=== PATIENT | female | born 1985 | race Hispanic/Latino ===

== ENCOUNTER 2020-03-01 21:17 | Emergency (ER) | payer SELFPAY ==
[~2020-03-01] VITALS: Ht 170.2 cm; Wt 80.7 kg
--- NOTE | 2020-03-01 21:28 | Emergency Department Note ---
History of Present Illnes History of Present Illness Chief Complaint: back pain History of Present Illness This is a 34 year old female, with history of hypertension, who presents with a one-week history of right sided low back pain, in the area of the SI notch, that radiates down into the right buttock and down the right leg. Patient's been taking Tylenol, more frequently than prescribed, she is unable take Motrin due to the fact that it causes her to have hives. Patient denies any heavy lifting or back injury. Patient states that she's had 5-6 similar episodes, since the beginning of this year. Patient was laid off due to Covid, and has lost her health insurance, so she has had to seek care at [facility] and the Emergency [facility]. HEALTH NURSE [place] - no narcotic pain medications have been filled last 2 years. Arrival Mode: Car Claim Taker Required: No Onset (how long ago): week(s) (1) Location: right low back/SI joint/Right buttock Quality: sharp, stabbing Radiation: Reports extremity (RLE) Severity: severe Onset quality: gradual Duration (how long): week(s) (1) Timing of current episode: constant Progression: unchanged Chronicity: recurrent Context: Denies recent illness, Denies recent surgery, Denies recent travel, Denies trauma/injury Relieving factors: none Exacerbating factors: movement (Raising RLE, worsens the pain) Associated symptoms: Reports denies other symptoms Treatments prior to arrival: other (Tylenol) Past Medical/Family History Physician Review I have reviewed the patient's past medical and family history. Any updates have been documented here. Past Medical History Recent Fever: No Clinical Suspicion of Infectio: No New/Unexplained Change in Ment: No Past Medical History: Hypertension Past Surgical History: None Social History Smoking Cessation: Never Smoker Alcohol Use: Occasional Any Illegal Drug Use: No TB Exposure/Symptoms: No Physically hurt or threatened: No Family History Family history of heart diseas: No Other Last Tetanus: unsure Any Pre-Existing Lines (PICC,: No Is patient up to date on immun: No Review of Systems Review of Systems Constitutional: Denies chills, Denies fever EENTM: Reports no symptoms Cardiovascular: Denies chest pain, Denies palpitations Respiratory: Denies cough, Denies dyspnea Gastrointestinal: Denies abdominal pain, Denies constipation, Denies diarrhea, Denies vomiting Genitourinary: Reports no symptoms Musculoskeletal: Reports back pain, Reports muscle pain (right low back); Denies joint pain, Denies neck pain Integumentary: Reports no symptoms Neurological: Denies numbness, Denies paresthesia, Denies weakness Psychological: Reports no symptoms Hematological/Lymphatic: Reports no symptoms Review of other systems: All other systems negative Physical Exam Related Data Allergies: Coded Allergies: Cephalosporins (Verified Allergy, Unknown, 03/01/20) ibuprofen (Verified Allergy, Unknown, 03/01/20) Vital signs reviewed: Yes Physical Exam CONSTITUTIONAL Constitutional: Present well-developed, Present well-nourished; Absent distressed, Absent ill appearing HENT HENT: Present normocephalic, Present atraumatic, Present oropharynx clear/moist, Present nose normal HENT L/R: Present left ext ear normal, Present right ext ear normal EYES Eyes: Reports PERRL, Reports conjunctivae normal NECK Neck: Present ROM normal PULMONARY Pulmonary: Present effort normal, Present breath sounds normal CARDIOVASCULAR Cardiovascular: Present regular rhythm, Present heart sounds normal, Present capillary refill normal, Present normal rate; Absent murmur GASTROINTESTINAL Abdominal: Present soft, Present nontender, Present bowel sounds normal GENITOURINARY Genitourinary: Present exam deferred SKIN Skin: Present warm, Present dry; Absent rash MUSCULOSKELETAL Musculoskeletal: Present tenderness (ttp of right SI joint and right sciatic notch; no lumbar vertebreal point tenderness;); Absent ROM normal (+ SLR on right at 30 degrees;) NEUROLOGICAL Neurological: Present alert, Present oriented x 3, Present no gross motor or sensory deficits; Absent cranial nerve deficit PSYCHOLOGICAL Psychological: Present mood/affect normal, Present judgement normal Results Laboratory Laboratory UPT - negative; UA - negative; Lab results reviewed: Yes Assessment & Plan Medical Decision Making MDM - Take medications as directed. Alternate ice and heat to the area of back pain. - Follow-up with a primary care provider, or orthopedic software support specialist for further evaluation if your symptoms, when possible. You likely need an MRI of th e lumbar spine and "Sacroiliac Joints," as well as some blood work to evaluate for possible arthritic conditions that could cause similar pain to what you are experiencing. - Consider "Airrosti Therapy," to help with chronic back pain. This is a form of "myofascial release," performed by a Chiropracter. - DO NOT take more than 4000 mg of Tylenol in a 24 hour period, and do NOT take with alcohol. Assessment & Plan Final Impression: (1) Sciatica (2) Sacroiliac inflammation Depart Disposition: HOME, SELF-assisted Meds Active Scripts Prednisone (PREDNISONE) 20 Mg Tab, 50 MG PO DAILY for inflammation of back for 7 Days, #7 TAB 0 Refills Prov:MILTON CERVANTES MD 03/01/20 Methocarbamol (ROBAXIN-750) 750 Mg Tablet, 1-2 TAB PO Q8H PRN for muscle spasm, #20 TAB 0 Refills Do [address] take and drive or operate machinery. Prov:MILTON CERVANTES MD 03/01/20 Tramadol Hcl (ULTRAM) 50 Mg Tablet, 1-2 TAB PO Q6H PRN for pain, #30 TAB 0 Refills DO NOT take and drive or operate machinery. Prov:MILTON CERVANTES MD 03/01/20 MILTON CERVANTES MD Mar 01, 2020 21:28
--- OUTSIDE RECORDS SUMMARY | 2020-03-01 22:27 | XMS REPORT | Continuity of Care Document ---
Author Author [employer] RAF[employer] Address Unknown Phone Unavailable Care Team Providers Care Customer Service Sales Consultant Name Role Phone [employer] Information Exchange Unavailable Un available Problems Problem Status Onset Date Classification Date Reported Comments Source Encounter to establish care Ac tive Diagnosis 1 06/07/2017 Enayet Rahim Essential hypertension Active Problem 04/07/2018 Enayet Rahim Blurred vision Active Diagnosis 04/07/2018 Enayet Rahim Chronic nonintractable headache, unspeci fied headache type Active Diag nosis 04/07/2018 Enayet Rahim Medications Medication Details Route Status Patient Instructions Ordering Provider Order Date Source Amlodipine Besylate 1 tablet Orally Active 5 MG Orally Once a day Mark Anthony 04/03/2018 Enayet Rahim Allergies, Adverse Reactions, Alerts Substance Category Reaction Severity Reaction type Status Date Reported Comments Source Cephalosporing Adverse Reaction hives Adverse Reaction Active 04/03/2018 Enayet Rahim Advil Adverse Reaction hives Adverse Reaction Active 04/03/2018 Enayet Rahim Motrin Adverse Reaction hives Adverse Reaction Active 04/03/2018 Enayet Rahim Immunizations No Data Provided for This Section Results No Data Provided for This Section Pathology Reports No Data Provided for This Section Diagnostic Reports No Data Provided for This Section Consultation Notes No Data Provided for This Section Discharge Summaries No Data Provided for This Section History and Physicals No Data Provided for This Section Vital Signs Vital Sign Value Date Comments Source Weight 163 04/03/2018 Enayet Rahim Height 67 1 06/03/2017 Enayet Rahim Temperature Oral (F) 98.0 F 04/03/2018 Enayet Rahim Diastolic (mm Hg) 96 04/03/2018 Enayet Rahim Systolic (mm Hg) 142 04/03/2018 Enayet Rahim Encounters No Data Provided for This Section Procedures No Data Provided for This Section Assessment and Plan No Data Provided for This Section Plan of Care No Data Provided for This Section Social History No Data Provided for This Section Family History No Data Provided for This Section Advance Directives No Data Provided for This Section Functional Status No Data Provided for This Section
[2020-03-01] MEDS ORDERED: PREDNISONE 20 MG TAB PO ONE (22:30)
[2020-03-01] MEDS ORDERED: ULTRAM50 MG PO (22:30)
[2020-03-01] MEDS ORDERED: ROBAXIN-750750 MG PO (22:32)
[2020-03-01] MEDS ORDERED: PREDNISONE20 MG PO (22:33)
[2020-03-01] MEDS ORDERED: PREDNISONE 20 MG TAB ONE (22:39)
== END 2020-03-01 22:56 | disposition home or self-care (01) ==
LOC: FSED 21:40
DX: M54.41 Lumbago with sciatica, right side (principal); M46.1 Sacroiliitis, not elsewhere classified; I10 Essential (primary) hypertension
CPT/HCPCS: 99282; J7512

== ENCOUNTER 2020-10-25 11:10 | Emergency (ER) | payer SELFPAY ==
[~2020-10-25] VITALS: Ht 170.2 cm; Wt 84.8 kg
[~2020-10-25 11:10] MED LIST: PREDNISONE20 MG PO; ROBAXIN-750750 MG PO; ULTRAM50 MG PO
[2020-10-25] MEDS ORDERED: EPINEPHRINE HCL 1:1000 1ML 1 MG/ML AMP IM STA (11:35)
[2020-10-25] MEDS ORDERED: PREDNISONE 20 MG TAB PO ONE (11:35)
[2020-10-25] MEDS ORDERED: FAMOTIDINE 20 MG TAB PO ONE (11:35)
[2020-10-25] MEDS ORDERED: EPINEPHRINE HCL 1:1000 1ML 1 MG/ML AMP IM ONE ×2 (11:45→12:19)
[2020-10-25] MEDS ORDERED: PREDNISONE 20 MG TAB ONE (11:53)
[2020-10-25] MEDS ORDERED: EPINEPHRINE HCL 1:1000 1ML 1 MG/ML AMP ONE ×2 (11:53→12:30)
[2020-10-25] MEDS ORDERED: FAMOTIDINE 20 MG TAB ONE (11:54)
[2020-10-25] MEDS ORDERED: PREDNISONE20 MG PO (12:27)
[2020-10-25] MEDS ORDERED: PEPCID20 MG PO (12:27)
[2020-10-25 12:41] VITALS: BP 133/87
== END 2020-10-25 12:40 | disposition home or self-care (01) ==
LOC: FSED 11:33
DX: L50.9 Urticaria, unspecified (principal); L29.9 Pruritus, unspecified; I10 Essential (primary) hypertension
CPT/HCPCS: 96372; 99283; J0171; J7512

== ENCOUNTER 2024-01-14 08:18 | Emergency (ER) | payer BC ==
[~2024-01-14] VITALS: Ht 170.2 cm; Wt 89.9 kg
[~2024-01-14 08:18] MED LIST changes: +ACETAMINOPHEN-1 EAC4 PO; +CIPRO500 MG PO; +ONDANSETRON ODT4 MG PO; +PEPCID20 MG PO
[2024-01-14] MEDS: SODIUM CHLORIDE 0.9% 500ML 500 ML IV STA (09:11)
[2024-01-14] MEDS: FAMOTIDINE 20 MG/2 ML VIAL IV STA (09:11)
[2024-01-14] MEDS: DIPHENHYDRAMINE HCL INJ 50 MG/ML VIAL IV ONE (09:12)
[2024-01-14] MEDS: METHYLPREDNISOLONE SOD SUCC 125 MG/2ML VIAL IV ONE (09:12)
[2024-01-14] MEDS ORDERED: FAMOTIDINE40 MG PO (09:24)
[2024-01-14 09:50] VITALS: PULSE 90; RESP 16; TEMP 99.5; O2SAT 99
== END 2024-01-14 09:50 | disposition home or self-care (01) ==
LOC: FSED 08:20
DX: L50.9 Urticaria, unspecified (principal); R50.9 Fever, unspecified
CPT/HCPCS: 81025; 96374; 96375; 99284; J1200; J2919; J7040

== ENCOUNTER 2024-02-18 10:38 | Emergency (ER) | payer BC ==
[~2024-02-18] VITALS: Ht 170.2 cm; Wt 88.0 kg
[~2024-02-18 10:38] MED LIST changes: +FAMOTIDINE40 MG PO
[2024-02-18 11:20] VITALS: PULSE 76; RESP 18; TEMP 98.8; O2SAT 100
[2024-02-18] MEDS: DEXAMETHASONE SOD PHOS INJ 4 MG/ML SDV IM ONE (11:46)
[2024-02-18] MEDS ORDERED: PEPCID20 MG PO (11:47)
[2024-02-18] MEDS: FAMOTIDINE 20 MG TAB PO ONE (11:47)
[2024-02-18] MEDS ORDERED: MEDROL4 MG PO (11:47)
[2024-02-18] MEDS ORDERED: BENADRYL25 M1 PO (11:58)
== END 2024-02-18 12:05 | disposition home or self-care (01) ==
LOC: FSED 11:18
DX: L50.9 Urticaria, unspecified (principal)
CPT/HCPCS: 99283; J1100